=== PATIENT | female | born 1995 | race Caucasian/White ===

== ENCOUNTER 2022-07-14 19:01 | Emergency (ER) | payer MEDICAID ==
[2022-07-14] MEDS ORDERED: LORazepam 2 MG/ML INJ IV STA (19:16)
[2022-07-14] MEDS ORDERED: DIPH,PERTUS(ACELL)TETVAC-LF 0.5 ML VIAL IM ONE (19:16)
[2022-07-14 19:18] VITALS: BP 146/102; PULSE 96; RESP 18
[2022-07-14 19:25] LABS: Basophils % (A) 1 %; Eosinophils # (A) 0.1 k/uL (0-0.7); Eosinophils % (A) 2 %; HCT 41.1 % (34.0-46.0); HGB 14.4 gm/dL (11.4-16.0); Lymphocytes % (A) 29 %; MCH 31.5 pg (25.0-35.0); MCV 89.8 fL (80.0-100.0); Mean Platelet Volume 8.1; Monocytes # (A) 0.4 k/uL (0-1.0); Monocytes % (A) 6 %; Neutrophils % (A) 60 %; Platelet Count 247 k/uL (150-450); RBC 4.57 m/uL (3.80-5.40); RDW 12.2 % (11.5-15.5); WBC 6.7 k/uL (3.8-10.6)
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
[2022-07-14 19:38] LABS: ALT 18 U/L (4-34); AST 49 U/L (14-36); African American GFR (CKD) >90 (>60 ml/min/1.73 sqM); Albumin 4.5 g/dL (3.5-5.0); Alkaline Phosphatase 67 U/L (38-126); Anion Gap 14 mmol/L; Blood Urea Nitrogen 12 mg/dL (7-17); Calcium 9.2 mg/dL (8.4-10.2); Carbon Dioxide 20 mmol/L (22-30); Chloride 105 mmol/L (98-107); Glucose 98 mg/dL (74-99); Non-African American GFR(CKD) 82 (>60 ml/min/1.73 sqM); Potassium 4.6 mmol/L (3.5-5.1); Sodium 139 mmol/L (137-145); Total Bilirubin 0.5 mg/dL (0.2-1.3); Total Protein 7.3 g/dL (6.3-8.2)
[2022-07-14 19:41] LABS: INR 0.9 (<1.2); Partial Thromboplastin Time 21.8 sec (22.0-30.0)
--- NOTE | 2022-07-14 19:43 | XR ---
EXAMINATION TYPE: XR chest 1V portable DATE OF EXAM: 07/14/2022 COMPARISON: NONE HISTORY: Pain TECHNIQUE: Single view FINDINGS: Heart is normal. Lungs are clear of infiltrate. No heart failure. There are no hilar masses . The bony thorax is intact. IMPRESSION: No active cardiopulmonary disease. Heart
[2022-07-14 19:44] LABS: Alcohol 172 mg/dL
[2022-07-14 19:47] LABS: Prothrombin Time 10.2 sec (9.0-12.0)
--- NOTE | 2022-07-14 19:49 | XR ---
EXAMINATION TYPE: XR pelvis AP view DATE OF EXAM: 07/14/2022 COMPARISON: NONE HISTORY: Pain. Fall TECHNIQUE: Single view FINDINGS: Pelvic ring is intact. The proximal femurs and hip joints are intact. Sacroiliac joints are intact. IMPRESSION: Normal pelvis. No fracture seen.
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
--- NOTE | 2022-07-14 21:06 | XR ---
EXAMINATION TYPE: XR shoulder complete RT DATE OF EXAM: 07/14/2022 COMPARISON: NONE HISTORY: Pain TECHNIQUE: 4 views FINDINGS: There is no sign of fracture nor dislocation. Joint spaces are normal. No pathologic calcif ication. IMPRESSION: Negative right shoulder exam.
[2022-07-14] MEDS ORDERED: TOPICAL SKIN ADHESIVE 1 EACH AMP TOPICAL ONE (21:07)
[2022-07-14] MEDS ORDERED: LIDOCAINE 1% INJ 10MG/ML (20 ML MDV) SQ ONE (21:07)
[2022-07-14] MEDS ORDERED: MORPHINE SULFATE 2 MG/ML SYRINGE IVP STA (21:14)
[2022-07-14] MEDS ORDERED: BACITRACIN OINT 1 EACH PACKET TOPICAL ONE (21:16)
--- NOTE | 2022-07-14 21:24 | XR ---
EXAMINATION TYPE: XR hand complete LT DATE OF EXAM: 07/14/2022 COMPARISON: NONE HISTORY: Pain TECHNIQUE: 3 views FINDINGS: Metacarpals are intact. I see no fracture nor dislocation. Joint spaces are normal. There a re no erosions. IMPRESSION: Negative left hand exam. No fracture.
== END 2022-07-14 22:23 | disposition home or self-care (01) ==
LOC: EC 19:01
DX: S06.0XAA Concussion with loss of consciousness status unknown, initial encounter (principal); S01.81XA Laceration without foreign body of other part of head, initial encounter; Z23 Encounter for immunization; Z88.0 Allergy status to penicillin; V86.59XA Driver of other special all-terrain or other off-road motor vehicle injured in nontraffic accident, initial encounter
CPT/HCPCS: 12011 ×2; 99285 ×2; 90471 ×2; 96374 ×2; 96375 ×2; 99283; 36415; 93005; 86900; 86901; 80053; 85025; 85610; 85730; 86850; 80320; 72170; 73030; 73130; 71045; 72125; 70450; 90715; J2060; J2001; J2270